=== PATIENT | female | born 1995 | race Caucasian/White ===

== ENCOUNTER 2024-07-30 13:47 | Outpatient (CLI) | payer BC, SELFPAY | END 2024-07-30 13:48 | disposition home or self-care (01) | LOC: NFLDREF 13:49 | PROVIDERS: Visit Provider Advanced Practice Midwife | DX: Z34.92 Encounter for supervision of normal pregnancy, unspecified, second trimester (principal); Z3A.22 22 weeks gestation of pregnancy | CPT/HCPCS: 86787 ==

== ENCOUNTER 2024-09-13 15:01 | Outpatient (CLI) | payer BC, SELFPAY | END 2024-09-13 15:02 | disposition home or self-care (01) | LOC: NFLDREF 09-18 02:05 | PROVIDERS: Visit Provider Advanced Practice Midwife | DX: Z34.93 Encounter for supervision of normal pregnancy, unspecified, third trimester (principal); Z3A.28 28 weeks gestation of pregnancy | CPT/HCPCS: 86592 ==

== ENCOUNTER 2024-09-19 07:51 | Outpatient (CLI) | payer BC, SELFPAY | END 2024-09-19 07:52 | disposition home or self-care (01) | LOC: NFLDREF 09-23 00:06 | PROVIDERS: Visit Provider Advanced Practice Midwife | DX: O99.810 Abnormal glucose complicating pregnancy (principal); Z3A.29 29 weeks gestation of pregnancy | CPT/HCPCS: 82951; 82952 ==

== ENCOUNTER 2024-11-04 07:30 | Outpatient (RCR) | payer BC, SELFPAY | END 2025-03-04 23:59 | disposition home or self-care (01) | PROVIDERS: Visit Provider Advanced Practice Midwife | DX: N81.89 Other female genital prolapse (principal); Z3A.28 28 weeks gestation of pregnancy; Z51.89 Encounter for other specified aftercare | CPT/HCPCS: 86592; 97110; 97140; 97161; 97535 ==

== ENCOUNTER 2024-11-05 10:33 | Outpatient (CLI) | payer BC, SELFPAY | END 2024-11-05 10:34 | disposition home or self-care (01) | LOC: NFLDREF 11-07 19:00 | PROVIDERS: Visit Provider Advanced Practice Midwife | DX: Z34.83 Encounter for supervision of other normal pregnancy, third trimester (principal) | CPT/HCPCS: 87081; 87653 ==

== ENCOUNTER 2024-11-14 09:20 | Outpatient (CLI) | payer BC, SELFPAY | END 2024-11-14 09:21 | disposition home or self-care (01) | LOC: NFLDREF 09:32 | PROVIDERS: Visit Provider Midwife | DX: Z39.1 Encounter for care and examination of lactating mother (principal); R42 Dizziness and giddiness | CPT/HCPCS: 84443 ==

== ENCOUNTER 2024-11-19 15:38 | Outpatient (CLI) | payer BC, SELFPAY ==
--- OUTSIDE RECORDS SUMMARY | 2023-10-31 05:00 | XMS_ITS ---
Author Organization [facility] Address [address] [place] [address] Care Team Providers Care Headstart Teacher Name Role Phone Cecilia Aguilera Primary Care Provider ALLERGIES No Known Allergies RESULTS Component Value Reference Range Notes Comp. Metabolic Panel (14) ( CMP)([id number]) Reviewed date:11/20/2023 11:37:32 AM Interpretation: Performing Lab:[facility], [employer] [place], [place] [id number], Phone - [phone], Director - [facility] Notes/Report: Glucose 80 70-99 mg/dL BUN 12 6-20 mg/dL Creatinine 0.86 0.57-1.00 mg/dL eGFR 95 >59 mL/min/1.73 BUN/Creatinine Ratio 14 9-23 Sodium 136 134-144 mmol/L Potassium 4.3 3.5-5.2 mmol/L Chloride 103 96-106 mmol/L Carbon Dioxide, Total 18 20-29 mmol/L Calcium 9.7 8.7-10.2 mg/dL Protein, Total 7.2 6.0-8.5 g/dL Albumin 4.5 4.0-5.0 g/dL Globulin, Total 2.7 1.5-4.5 g/dL Bilirubin, Total 0.6 0.0-1.2 mg/dL Alkaline Phosphatase 61 44-121 IU/L AST (SGOT) 16 0-40 IU/L ALT (SGPT) 10 0-32 IU/L Hemoglobin A1c (S/O) ([id number] ) Reviewed date:11/17/2023 12:07:28 PM Interpretation: Performing Lab:[facility], [address] [place] [id number], Phone - [phone], Director - [facility] Notes/Report: Hemoglobin A1c 5.1 4.8-5.6 % . Prediabetes: 5.7 - 6.4 Diabetes: >6.4 Glycemic control for adults with diabetes: <7.0 TSH ([id number]) Reviewed date:11/17/2023 12:08:36 PM Interpretation: Performing Lab:[facility], [address] [place] [id number], Phone - [phone], Director - [facility] Notes/Report: TSH 2.990 0.450-4.500 uIU/mL Vitamin D, 25-Hydroxy (Vit D ) (797676) Reviewed date:11/17/2023 12:08:29 PM Interpretation: Performing Lab:[facility], [address] [place] [id number], Phone - [phone], Director - [facility] Notes/Report: Vitamin D, 25-Hydroxy 40.0 30.0-100.0 ng/mL Vitamin D deficiency has been defined by the [place] [employer] and an Endocrine Society practice guideline as a level of serum 25-OH vitamin D less than 20 ng/mL (1,2). The Endocrine Society went on to further define vitamin D insufficiency as a level between 21 and 29 ng/mL (2). 1. IOM ([place] of [employer]). 2010. Dietary reference intakes for calcium and D. [place]: The National Academies Press. 2. Bolivar MF, Jessi [place], Micheal RENEE, et al. Evaluation, treatment, and prevention of vitamin D deficiency: an Endocrine Society clinical practice guideline. JCEM. 2010; 96(7):1911-30. Lipid Panel [facility] (409397) Reviewed date:11/17/2023 12:08:21 PM Interpretation: Performing Lab:[facility], [address] [place] [id number], Phone - [phone], Director - [facility] Notes/Report: Cholesterol, Total 140 100-199 mg/dL Triglycerides 69 0-149 mg/dL HDL Cholesterol 60 >39 mg/dL VLDL Cholesterol López 14 5-40 mg/dL LDL Chol Calc ([facility]) 66 0-99 mg/dL LDL Calc Comment: CBC With Differential/Platel et ([id number]) Reviewed date:11/17/2023 12:08:06 PM Interpretation: Performing Lab:[facility], [address], [place] [id number], Phone - [phone], Director - [facility] Notes/Report: WBC 5.5 3.4-10.8 x10E3/uL RBC 4.65 3.77-5.28 x10E6/uL Hemoglobin 14.0 11.1-15.9 g/dL Hematocrit 42.5 34.0-46.6 % MCV 91 79-97 fL MCH 30.1 26.6-33.0 pg MCHC 32.9 31.5-35.7 g/dL RDW 12.4 11.7-15.4 % Platelets 244 150-450 x10E3/uL Neutrophils 56 Not Estab. % Lymphs 37 Not Estab. % Monocytes 5 Not Estab. % Eos 1 Not Estab. % Basos 1 Not Estab. % Immature Cells Neutrophils (Absolute) 3.1 1.4-7.0 x10E3/uL Lymphs (Absolute) 2.0 0.7-3.1 x10E3/uL Monocytes(Absolute) 0.3 0.1-0.9 x10E3/uL Eos (Absolute) 0.1 0.0-0.4 x10E3/uL Baso (Absolute) 0.0 0.0-0.2 x10E3/uL Immature Granulocytes 0 Not Estab. % Immature Grans (Abs) 0.0 0.0-0.1 x10E3/uL NRBC Hematology Comments: [facility] ([id number]) Reviewed date:11/17/2023 12:07:52 PM Interpretation: Performing Lab:[facility], [address], [place] [id number], Phone - [phone], Director - [facility] Notes/Report: Patient Height (In) 63.0 Patient Weight (lbs) 140.0 Body Mass Index 24.8 Waist Circumference (In) 26.0 Systolic Blood Pressure 116 Diastolic Blood Pressure 78 Pulse 78 REASON FOR VISIT Annual Wellness Review MEDICATIONS Medication SIG (Take, Route, Fr equency, Duration) Notes Start Date End Date Status Vienva 0.1-20 MG-MCG 1 TABLET BY MOUTH O NCE DAILY Oral for 84 Days Active SOCIAL HISTORY Tobacco Use: Social History Observation Description Date Details (start date - stop date) Never Smoker NA - NA Sex Assigned At : Social History Observation Description Sex Assigned At Unknown Tobacco Use/Smoking Question Answer Notes Are you a nonuser Alcohol Questionnaire Question Answer Notes Did you have a drink contain ing alcohol in the past year? Yes How often did you have a dri nk containing alcohol in the past year? Monthly or less (1 point) How many drinks did you have on a typical day when you were drinking in the past year? 1 or 2 drinks (0 point) How often did you have 6 or more drinks on one occasion in the past year? Never (0 point) Points 1 Interpretation Negative VITAL SIGNS Weight 145 lbs 10/31/2023 Height 62 in 10/31/2023 BMI 26.52 10/31/2023 Weight-kg 65.77 kg 10/31/2023 Encounters Encounter Location Date Provider Diagnosis [address] [id number] [facility] [place] [address] 10/31/2023 Ceciila Aguilera Encounter to establish care Z76.89 and Routine lab draw Z01.89 ASSESSMENTS Encounter Date Diagnosis Assessment Notes Treatment Notes Treatment Clinical Notes Section Notes 10/31/2023 Encounter to establish care (ICD-10 - Z76.89) Advised patient to obtain yearly flu vaccine if not allergic, yearly eye exam, dental cleaning q 6 months, perform SBE and skin checks monthly, exercise 150minutes weekly, eat a variety of colorful fruits and vegetables. Avoid sugary beverages, processed red meats and trans fats (processed and fast food) as these promote disease. CPE yearly and follow up prn. 10/31/2023 Routine lab draw (ICD-10 - Z01.89) PLAN OF TREATMENT Treatment Notes Assessment Notes Encounter to establish care Advised sher ent to obtain yearly flu vaccine if not allergic, yearly eye exam, dental cleaning q 6 months, perform SBE and skin checks monthly, exercise 150minutes weekly, eat a variety of colorful fruits and vegetables. Avoid sugary beverages, processed red meats and trans fats (processed and fast food) as these promote disease. CPE yearly and follow up prn. Next Appt Details Follow Up: 1 Week, Reason: f /u labs Progress Notes * Juan Carlos RAMIREZ: [birth year] (28 yo F)Acc No.[id number]:10/31/2023 Patient: Jer RAMIREZ Provider: Cecilia Aguilera NP :1995 Age:28 Y Sex:Female Date:10/31/2023 Address:[address] [place] [address], [facility] Subjective: * Chief Complaints: * 1. Annual Wellness Review. * HPI: Depression/Anxiety Screening: PHQ-2 (2015 Edition)* Little interest or pleasure in doing things? Not at all Feeling down, depressed or hopeless? Not at all Total score: 0 This encounter was undertaken via video. I introduced myself as Cecilia Aguilera NP and greeted Jer Ramirez by name, then verified her date of , and verified her location in [place]. We reviewed the appropriateness of virtual care for this visit and the limitations of telemedicine. We discussed that virtual provider does not take the place of your PCP and you should continue to maintain a relationship with a local PCP. If it was felt the patient should be evaluated [id number], they were directed to the clinic for care either now or at a subsequent visit as indicated below. I obtained verbal consent for this telemedicine visit from the patient. The patient is having an annual wellness performed today. Her only concern is wanting to lose about 15-20 pounds before her wedding. She was interested in GLP-1's, but I did notify that we do not do weightloss medications, but there are some other online programs that do. We will also get annual labs today. Depression Screening: SANJEEV-7 (2018 Edition) Feeling nervous, anxious, or on edge Several days Not being able to stop or control worrying Several days Worrying too much about different things Several days Trouble relaxing Not at all Being so restless that it is hard to sit still Several days Becoming easily annoyed or irritable Several days Feeling afraid as if something awful might happen Several days Total SANJEEV-7 Score 6 Interpretation of Total (5 to 9) Mild * ROS: Patient denies fever, chills, headache, sore throat, dizziness, weakness, nausea, vomiting, diarrhea, congestion, cough, wheezing, SOB, HIDALGO, chest pain, itching, rash, changes to bowel / bladder patterns, abdominal discomforts, changes in sleep habits, vision changes, musculoskeletal trauma, anxiety, depression or any other complaints. * Medical History: Medical History Verified. 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 Date of Last Period 10/15/23 NORMAL. control YES. * Surgical History: BENIGN TUMOR R BREAST REMOVED 2014. * Hospitalization/Major Diagno stic Procedure: SEE ABOVE . * Family History: Father: alive 62 yrs, diagnosed with Hypertension, Hyperlipidemia. Mother: alive 63 yrs, kidney transplant, diagnosed with Hypertension, Hyperlipidemia. Family history of renal failure. * Social History: Tobacco Use: Tobacco Use/Smoking Are you a nonuser Habits (drugs/alcohol/caffeine): Alcohol Questionnaire Did you have a drink containing alcohol in the past year? Yes How often did you have a drink containing alcohol in the past year? Monthly or less (1 point) How many drinks did you have on a typical day when you were drinking in the past year? 1 or 2 drinks (0 point) How often did you have 6 or more drinks on one occasion in the past year? Never (0 point) Points 1 Interpretation Negative * Medications: Taking Vienva 0.1-20 MG-MCG Tablet 1 TABLET BY MOUTH ONCE DAILY Oral , Medication List reviewed and reconciled with the patient * Allergies: N.K.A. Objective: * Vitals: Wt:145lbs, Ht:62in, BMI:26.52, Wt-k.77 kg. * Examination: General Examination *: General: well-appearing, well-groomed, alert, in no acute distress Skin: no visible rashes, bruising, lesions, or lacerations Head: normocephalic, facial movements symmetrical Eyes: clear conjunctiva, anicteric sclera Ears: hearing grossly intact Throat: speaks in clear, unmuffled voice without stridor, dysphonia, congestion, or hoarseness Neck: no visible thyromegaly or other masses, able to move neck in all directions without signs of pain Chest/lungs: normal respiratory effort, no tachypnea apparent, speaking in full sentences, no audible wheezing, symmetrical chest expansion Neuro: no visible tremor or involuntary movements, normal concentration and attention, A&O x3 with memory grossly intact, coordination appears normal within limited video view Psych: calm, cooperative, answers questions appropriately, pleasant, not anxious during visit. Assessment: * Assessment: 1. Encounter to establish care - (Primary) 2. Routine lab draw - Plan: * Treatment: Value Reference Range Glucose, Serum 80 70-99 - mg/dL * BUN 12 6-20 - mg/dL * Creatinine, Serum 0.86 0.57-1.00 - mg/dL * BUN/Creatinine Ratio 14 9-23 - * Sodium, Serum 136 134-144 - mmol/L * Potassium, Serum 4.3 3.5-5.2 - mmol/L * Chloride, Serum 103 96-106 - mmol/L * Carbon Dioxide, Total 18 L 20-29 - mmol/L * Calcium, Serum 9.7 8.7-10.2 - mg/dL * Protein, Total, Serum 7.2 6.0-8.5 - g/dL * Albumin, Serum 4.5 4.0-5.0 - g/dL * Globulin, Total 2.7 1.5-4.5 - g/dL * Bilirubin, Total 0.6 0.0-1.2 - mg/dL * Alkaline Phosphatase, S 61 44-121 - IU/L * AST (SGOT) 16 0-40 - IU/L * ALT (SGPT) 10 0-32 - IU/L * eGFR 95 >59 - mL/min/1.73 * This lab was reviewed by Luiza Aguilera on 11/20/2023 at 11:37 AM MDT ?LAB: Hemoglobin A1c (S/O) ([id number])* Value Reference Range Hemoglobin A1c 5.1 4.8-5.6 - % * This lab was reviewed by Luiza Aguilera on 11/17/2023 at 12:07 PM MDT ?LAB: TSH ([id number])* Value Reference Range TSH 2.990 0.450-4.500 - uIU/mL * This lab was reviewed by Luiza Aguilera on 11/17/2023 at 12:08 PM MDT ?LAB: Vitamin D, 25-Hydroxy (Vit D) ([id number])* Value Reference Range Vitamin D, 25-Hydroxy 40.0 30.0-100.0 - ng/mL * This lab was reviewed by Luiza Aguilera on 11/17/2023 at 12:08 PM MDT ?LAB: CBC With Differential/Platelet ([id number])* Value Reference Range WBC 5.5 3.4-10.8 - x10E3/uL * RBC 4.65 3.77-5.28 - x10E6/uL * Hemoglobin 14.0 11.1-15.9 - g/dL * Hematocrit 42.5 34.0-46.6 - % * MCV 91 79-97 - fL * MCH 30.1 26.6-33.0 - pg * MCHC 32.9 31.5-35.7 - g/dL * RDW 12.4 11.7-15.4 - % * Platelets 244 150-450 - x10E3/uL * Neutrophils 56 Not Estab. - % * Lymphs 37 Not Estab. - % * Monocytes 5 Not Estab. - % * Eos 1 Not Estab. - % * Basos 1 Not Estab. - % * Neutrophils (Absolute) 3.1 1.4-7.0 - x10E3/u L * Lymphs (Absolute) 2.0 0.7-3.1 - x10E3/uL * Monocytes(Absolute) 0.3 0.1-0.9 - x10E3/uL * Eos (Absolute) 0.1 0.0-0.4 - x10E3/uL * Baso (Absolute) 0.0 0.0-0.2 - x10E3/uL * Immature Granulocytes 0 Not Estab. - % * Immature Grans (Abs) 0.0 0.0-0.1 - x10E3/uL * This lab was reviewed by Luiza Aguilera on 11/17/2023 at 12:08 PM MDT ?LAB: Lipid Panel [facility] ([id number])* Value Reference Range Cholesterol, Total 140 100-199 - mg/dL * HDL Cholesterol 60 >39 - mg/dL * Triglycerides 69 0-149 - mg/dL * Cholesterol, Total 140 100-199 - mg/dL * Triglycerides 69 0-149 - mg/dL * HDL Cholesterol 60 >39 - mg/dL * VLDL Cholesterol López 14 5-40 - mg/dL * LDL Chol Calc ([facility]) 66 0-99 - mg/dL * This lab was reviewed by Luiza Aguilera on 11/17/2023 at 12:08 PM MDT ?LAB: BIOMETRICS ([id number])* Value Reference Range Patient Height (In) 63.0 - in * Patient Weight (lbs) 140.0 - lbs * Body Mass Index 24.8 - * Waist Circumference (In) 26.0 - in * Systolic Blood Pressure 116 - mmHg * Diastolic Blood Pressure 78 - mmHg * Pulse 78 - BPM * This lab was reviewed by Luiza Aguilera on 11/17/2023 at 12:07 PM MDT Notes: Advised patient to obtain yearly flu vaccine if not allergic, yearly eye exam, dental cleaning q 6 months, perform SBE and skin checks monthly, exercise 150minutes weekly, eat a variety of colorful fruits and vegetables. Avoid sugary beverages, processed red meats and trans fats (processed and fast food) as these promote disease. CPE yearly and follow up prn. ? * Procedure Codes: 1036F Nicotine Screening, 3008F BMI Screening, 3351F Depression Screening, 35641 Anxiety Screening, [employer] WELLNESS * Preventive Medicine: Recommend in person physical exam yearly, recommend dental exam every 6 months, recommend Annual labs, recommend colonoscopy after age 45. Recommend yearly mammogram after age 40, recommend pap smear q1-3 years. * Follow Up: 1 Week (Reason: f/u labs) * Billing Information: * Visit Code: 59556 Televisit Lvl 3. Modifiers: 93 * Procedure Codes: 1036F Nicotine Screening - Non-user (Current). 3008F BMI Screening. 3351F Depression Screening - NEGATIVE Screening (PHQ9 <10). 83848 Anxiety Screening. [employer] WELLNESS. * Sign off status: Completed true * Provider: Cecilia Aguilera NP Date: 10/31/2023 History and Physical Notes * HPI (History of Present Illness) Category Sub-Category Detail Notes Category Not es Depression/Anxiety Screening PHQ-2 (2015 Edition)* Little interest or pleasure in doing things?: Not at all This encounter was undertaken via video. I introduced myself as Cecilia Aguilera NP and greeted Jer Ramirez by name, then verified her date of , and verified her location in [place]. We reviewed the appropriateness of virtual care for this visit and the limitations of telemedicine. We discussed that virtual provider does not take the place of your PCP and you should continue to maintain a relationship with a local PCP. If it was felt the patient should be evaluated [id number], they were directed to the clinic for care either now or at a subsequent visit as indicated below. I obtained verbal consent for this telemedicine visit from the patient. The patient is having an annual wellness performed today. Her only concern is wanting to lose about 15-20 pounds before her wedding. She was interested in GLP-1's, but I did notify that we do not do weightloss medications, but there are some other online programs that do. We will also get annual labs today. Feeling down, depressed or hopeless?: No t at all Total score:: 0 Depression Screening SANJEEV-7 (2018 Edition) Feelin g nervous, anxious, or on edge: Several days Not being able to stop or control worryi ng: Several days Worrying too much about different things : Several days Trouble relaxing: Not at all Being so restless that it is hard to sit still: Several days Becoming easily annoyed or irritable: Se veral days Feeling afraid as if something awful luis armando ht happen: Several days Total SANJEEV-7 Score: 6 Interpretation of Total: (5 to 9) Mild Examination Category Sub-Category Detail Notes Category Not es General Examination * General: well-appearing, well-groomed, alert, in no acute distress Skin: no visible rashes, bruising, lesions, or lacerations Head: normocephalic, facial movements symmetrical Eyes: clear conjunctiva, anicteric sclera Ears: hearing grossly intact Throat: speaks in clear, unmuffled voice without stridor, dysphonia, congestion, or hoarseness Neck: no visible thyromegaly or other masses, able to move neck in all directions without signs of pain Chest/lungs: normal respiratory effort, no tachypnea apparent, speaking in full sentences, no audible wheezing, symmetrical chest expansion Neuro: no visible tremor or involuntary movements, normal concentration and attention, A&O x3 with memory grossly intact, coordination appears normal within limited video view Psych: calm, cooperative, answers questions appropriately, pleasant, not anxious during visit.
--- OUTSIDE RECORDS SUMMARY | 2023-11-01 06:41 | XMS_ITS ---
Author Organization [facility] Address [address] [place] [address] Care Team Providers Care Concession Attendant Name Role Phone Cecilia Aguilera Primary Care Provider REASON FOR VISIT PRTL: lab req, recommendations for weight loss Encounters Encounter Location Date Provider Diagnosis [address] [place] [address] 11/01/2023 Cecilia Aguilera PLAN OF TREATMENT No Information Progress Notes * Jer REYNOLDSDOB: [birth year] (28 yo F)Acc No.[id number]:11/01/2023 Patient: Jer REYNOLDS :1995 Age:28 Y Sex:Female Address:[address] [place] [id number] Subjective: * Chief Complaints: * PRTL: lab req, recommendations for weight loss * Medical History: * Surgical History: * Hospitalization/Major Diagno stic Procedure: * Medications: Objective: Assessment: Plan: * Treatment: * Procedure Codes: * true * Date:
--- OUTSIDE RECORDS SUMMARY | 2023-11-21 04:10 | XMS_ITS ---
Author Organization [facility] Address [address] [place] [address] Care Team Providers Care Development Editor Name Role Phone Cecilia Aguilera Primary Care Provider REASON FOR VISIT PRTL: labs Encounters Encounter Location Date Provider Diagnosis [address] [place] [address] 11/21/2023 Cecilia Aguilera PLAN OF TREATMENT No Information Progress Notes * Kiersten REYNOLDSkandisDOB: [birth year] (28 yo F)Acc No.[id number]:11/21/2023 Patient: Jer REYNOLDS :1995 Age:28 Y Sex:Female Address:[address] [place] [id number] Subjective: * Chief Complaints: * PRTL: labs * Medical History: * Surgical History: * Hospitalization/Major Diagno stic Procedure: * Medications: Objective: Assessment: Plan: * Treatment: * Procedure Codes: * true * Date:
--- NOTE | 2024-11-19 16:26 | W.PM.LAC.MC ---
Consult Note - Mom Date of Visit Date of visit: 11/19/24 Reason for consultation: Assistance Needed (latching issue) Visit Code: Visit Patient's Information Phone number: [phone] : 2 Para: 1 Allergies No Known Drug Allergies Allergy (Verified 11/19/24 12:46) Mother's Medical History: Medical History (Updated 11/19/24 @ 13:14 by Tracy Marin CNM) Induced ?Z33.2 - Encounter for elective termination of (ICD-10) Genital herpes ?A60.00 - Herpesviral infection of urogenital system, unspecified (ICD-10) Work Plans: return to work at 12 weeks Delivery Information Delivery type: Vaginal Gestational Age: 37 Gestational Weight For Age: AGA Weight: 3.061 kg Baby's Information Baby's Age at Visit: 10 days Baby's Provider or Clinic: [facility] Jaundice: No Past Experience Past Experience: No Current Frequency of Day Feedings: every 2-3 hrs, needs waking for feedings Frequency of Night Feedings: same Both Breasts: Yes Suck: gets tired, occas strong Latch: needs a sheild Length of Time: 15 min ea side Goals: 6 months to 1 year Pumping Pumping: Yes Quantity Pumped: 2-4 oz/breast ea feeding every 3 hours (4-8 oz total) Supplementing EBM Supplement: Yes (taking 1-3 oz/feeding) Formula Supplement: No Baby Elimination Number of Wet Diapers a Day: ea feeding Number of BM a Day: 5-6 or more/day Breast/Nipple Condition Breast Information: Breasts are symmetrical with rounded lower quadrants, intramammary distance is less than 1.5 inches. No erythema. Nipples are supple, everted prior to feeding. Breast Shape: Round and Firm Engorgement: No Maternal Nipple Condition - Left: Common Nipple Maternal Nipple Condition - Right: Common Nipple Sore Nipples: Yes (slight) Interventions for Sore Nipples: Other (silverettes) Baby Assessment Skin: Normal Tongue/frenulum: Restricted mid-range Palate: Average Lips: Relaxed and Symmetrical Jaw Alignment: Symmetrical Mucosa: [place], moist Onsite Observation Pre-Feed weight: 2.932 kg (up 112 gm in 7 days) Post-Feed weight: 2.946 kg Milk Transferred (mL): 14 (10 min on L side, 10 min on R; 14 ml was all from the LEFT (1st) side) Position: Cross cradle Attachment/latch-on achieved: With difficulty and With nipple shield Swallow: Occasionally Behavior following feed: Relaxed, sleepy Pre-Nursing Left Nipple: Within Normal Limits Pre-Nursing Right Nipple: Within Normal Limits Post-Nursing Left Nipple: Within Normal Limits Post-Nursing Right Nipple: Within Normal Limits Assessments/Interventions Assessments/Interventions: Mom attempted to latch baby to the breast without a nipple shield; babe will open mouth wide, latch on, suck a few times but cannot general passenger agent the breast and resume nursing to transfer ramya. With a nipple shield, he can sustain nursing longer, but not transferring sufficient milk for growth and tires self out on first breast. Education provided: Early feeding cues to maximize timing of latching, Asymmetric latch technique for wide/deep latch to increase milk, Transfer for baby and increase comfort for mom, Supply/demand nature of milk supply, Alternative feeding methods (SNS, cup, finger feeding, bottling) (paced bottle feeding), Use of nipple shield, Pumping for milk management and Milk collection, storage Handouts Provided: Tongue tie resources Feeding Plan: Every other feeding; breastfeed for 10 on each breast, listening for active swallowing. Try to latch without shield but use shield if needed Then supplement with EBM, up to 3 oz after Every other feeding, pump and bottle EBM to conserve energy for baby and time for mom. Discussed importance of rest for mom Pump both breasts for: 15-20 minutes after each feeding; a full 20 minutes if pumping instead of Use Paced bottle for feeding; demonstrated in office today Rest, and repeat every 2-3 hours, watch for early feeding cues Try skin to skin to increase milk production Discussed being careful not to over pump and create an oversupply; mom will watch this carefully She is also eager to create a milk stash to have enough milk if her supply drops later on. Discussed he pros/cons of an oversupply. Follow-Up Suggested follow up: Appointment in 1 week Time Spent Time spent with patient (min): 90 Meds Home Medications and Allergies Home Medications ?Medication ?Instructions ?Recorded ?Confirmed ?Type vits 75-iron 28 mg-folic pkg PO 07/30/24 11/19/24 History acid 800 mcg-omega-3 oral combo pack (One A Day Women's DHA) calcium carbonate 500 mg PO QDAY 09/13/24 11/19/24 History valacyclovir 500 mg tablet 500 mg PO BID 11/05/24 11/19/24 History (Valtrex) Allergies Allergy/AdvReac Type Severity Reaction Status Date / Time No Known Drug Allergies Allergy Verified 11/19/24 12:46
--- OUTSIDE RECORDS SUMMARY | 2024-11-20 00:56 | XMS_ITS | Patient Health Record ---
Author Organization [facility] Address [address] [place] [address] Care Team Providers Care Furnace Repairer Helper Name Role Phone Cecilia Aguilera Primary Care Provider ALLERGIES No Known Allergies REASON FOR REFERRAL No Information MEDICATIONS Medication SIG (Take, Route, Fr equency, [...] Never (0 point) Points 1 Interpretation Negative Encounters Encounter Location Date Provider Diagnosis [facility] [address] [id number] 11/21/2023 Cecilia Aguilera PLAN OF TREATMENT No Information Insurance Providers Payer Name Payer Address Payer Phone Subscriber Number Group Number Insured Name Patient Relationship to Insured Coverage Start Date Coverage End Date RICKEY LEIVA [address] [address] [place] [address] [id number] Jer Reynolds Self - patient is the insured MEDICAL (GENERAL) HISTORY Surgical History Surgery Date(Month/Year) BENIGN TUMOR R BREAST REMOVED 2015 Hospitalization History Reason Date(Month/Year) SEE ABOVE
--- OUTSIDE RECORDS SUMMARY | 2024-11-20 00:56 | XMS_ITS | Clinical Summary ---
Author Organization [facility] Address [address] [place] [id number] Care Team Providers Care Medical Screener Name Role Phone Ruby Villalta MD Primary Care Provi fidencio Allergies No known active allergies Medications clobetasol 0.05% (TEMOVATE 0.05% OINTMENT) 0.05 % ointmentIndications :Lichen of skin,Vulvar irritation Apply small amount to affected nightly before bed for 2 weeks or until symptoms resolved. 1 Tube 7 Active levonorgestrel-ethi nyl estrad, 0.1mg-20mcg, (FALMINA, 28,) 0.1-20 mg-mcg tabletIndications:E ncounter for surveillance of contraceptives Take 1 tablet by mouth once daily. 1 Package 12 7 Active fluconazole (DIFLUCAN) 150 mg tabletIndications:V aginal discharge Take one tablet by mouth. Repeat in 24 hours as needed. 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 Gender Identity Not on file Sexual Orientation Not on file 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 Not on file Not on file Not on mitzi e Obstetrics History Para Term AB IAB SAB Ectopic Multiple Livin g Live Births 0 0 0 0 0 0 0 0 0 0 Last Filed Vital Signs Vital Sign Reading Time Taken Comments Blood Pressure 112/72 11/21/2016 11:40 AM CDT Pulse 66 11/21/2016 11:40 AM CDT Temperature - - Respiratory Rate - - Oxygen Saturation - - Inhaled Oxygen Concentration - - Weight 53 kg (116 lb 12.8 oz) 11/21/2016 11:40 A M CDT Height 157.5 cm (5' 2) 08/11/2016 9:43 AM CDT Body Mass Index - - Plan of Treatment Health Maintenance Due Date Last Done Comments HIV for age 15-65 2012 Hepatitis C screening for ag e 18-79 2015 Hepatitis B series for 19+ ( 1 of 3 - 19+ 3-dose series) 2016 BMI (ht and wt on same day) for age 18+ 08/11/2017 08/11/2016 Depression screening for age 12+ 08/29/2017 08/30/19 17 Pap test for age 21-65 2018 Tetanus booster 01/20/2020 01/19/2010 COVID-19 vaccine series (2023- season) 2024 Influenza Vaccine (Season Ended) 2025 Tdap Completed 01/19/2010 Pneumococcal series for age 6-49 Aged Out No longer eligible based on patient's age to complete this topic Insurance BLUE CROSS OF [place] Care Teams Medical Screener Relationship Specialty Start Date End Date Ruby Villalta MD [address] [place] [address] PCP - General Family Practice 08/11/16
--- OUTSIDE RECORDS SUMMARY | 2024-11-20 00:56 | XMS_ITS | Clinical Summary ---
Author Organization [facility] Address [address] [place] [address] Care Team Providers Care Glass Products Inspector Name Role Phone Elsewhere, Pcp Primary Care Provider Unavailabl e Source Comments Patient records contain information from all sites at [facility]. For routine questions regarding patient records, call [phone] during business hours, M-F 8:00 AM - 5:00 PM Central Time. Record requests for emergency care only can be directed to [phone] at any time.[facility] Allergies No known active allergies Medications cjozfqg-Gk-ogzp-FA 27 mg iron- 1 mg tablet Take 1 tablet by mouth daily. Active cholecalciferol (Vitamin D3) 125 mcg (5,000 Unit) capsule Take 125 mcg by mouth daily. Active ondansetron ODT (Zofran-ODT) 4 mg disintegrating tablet Dissolve 1 tablet (4 mg total) in the mouth every 8 (eight) hours as needed for nausea or vomiting. Active Active Problems Estimated Date of Delivery Comme nts Yes 11/26/2024 No known active problems Social History Tobacco Use Types Packs/Day Years Used Date Smoking Tobacco: Never Smokeless Tobacco: Never Tobacco Cessation:Counseling Given: Not Answered Estimated Date of Delivery Comme nts Yes 11/26/2024 Sex and Gender Information Value Date Recorded Sex Assigned at Not on file Legal Sex Female 4:49 PM DIRECT MAIL CLERK Gender Identity Not on file Sexual Orientation Not on file Last Filed Vital Signs Vital Sign Reading Time Taken Comments Blood Pressure 99/68 05/29/2024 1:30 PM DIRECT MAIL CLERK Pulse 90 05/29/2024 1:50 PM DIRECT MAIL CLERK Temperature 36.8 C (98.2 F) 05/29/2024 10:41 AM DIRECT MAIL CLERK Respiratory Rate 16 05/29/2024 1:50 PM DIRECT MAIL CLERK Oxygen Saturation 98% 05/29/2024 1:50 PM DIRECT MAIL CLERK Inhaled Oxygen Concentration - - Weight 60.1 kg (132 lb 9.6 oz) 05/29/2024 10:39 AM DIRECT MAIL CLERK Height 157.5 cm (5' 2) 05/26/2024 8:07 AM DIRECT MAIL CLERK Body Mass Index 24.25 05/26/2024 8:07 AM DIRECT MAIL CLERK Plan of Treatment Health Maintenance Due Date Last Done Comments Cervical/Vaginal Cancer Screening 1997 HIV Screening 1997 Hepatitis C Screening 1997 IPV Vaccines (2 of 3 - 4-dose series) 02/03/2003 01/06/2003 Hepatitis B Vaccines (1 of 3 - 19+ 3-dose series) 2016 COVID-19 Vaccine (4 - season) 2024 06/21/2021, 10/06/2020, 09/08/2020 Influenza Vaccine (#1) 2024 , 03/06/2019, 03/08/2018, Additional history exists Depression Screening (Annual PHQ-2) 05/29/2024 Tdap vaccine - (27-36 weeks) (1 - Tdap) 08/27/2024 12/01/2020, 01/19/2010, 01/06/2003 DTaP,Tdap,and Td Vaccines (4 - Td or Tdap) 12/01/2030 12/01/2020, 01/19/2010, 01/06/2003 HPV Vaccines Completed 11/07/2014, 11/28, 11/21/2013 Pneumococcal vaccine (0-49 years) Aged Out No longer eligible based on patient's age to complete this topic RSV vaccine - (32-36 weeks) or 60+ years (No Doses Required) Completed Insurance [facility] Care Teams Glass Products Inspector Relationship Specialty Start Date End Date Elsewhere, Pcp PCP - General Machinist Job Setter 06/14/19
== END 2024-11-19 15:39 | disposition home or self-care (01) ==
LOC: OB LAC 15:39
PROVIDERS: Visit Provider Advanced Practice Midwife
DX: Z39.1 Encounter for care and examination of lactating mother (principal)
CPT/HCPCS: G0463

== ENCOUNTER 2024-12-20 11:35 | Outpatient (CLI) | payer BC, SELFPAY ==
[2024-12-21 22:00] LABS: HPV Source Cervical
[2024-12-25 13:39] LABS: Pap Test Digital Imaging Done
== END 2024-12-20 11:36 | disposition home or self-care (01) ==
PROVIDERS: Visit Provider Midwife
DX: Z12.4 Encounter for screening for malignant neoplasm of cervix (principal); Z11.51 Encounter for screening for human papillomavirus (HPV)
CPT/HCPCS: 87624; 87625; 88141; 88142; 88175

== ENCOUNTER 2024-12-30 09:30 | Outpatient (CLI) | payer BC, SELFPAY ==
--- NOTE | 2024-12-30 14:50 | W.PM.LAC.MF ---
Follow-Up Note: Mom Date of visit Date of visit: 12/30/24 Reason for consultation: Assistance Needed and Other (milk transfer, pumping questions) Visit Code: Visit Patient's Information Allergies No Known Drug Allergies Allergy (Verified 12/20/24 10:36) Delivery Information Weight: 3.061 kg Last Weight: 3.31 kg (11/26/24) Baby's Information Baby's name: Kj Sarmiento Baby's Age at Visit: 1m 21d Baby's Provider or Clinic: [facility] Current Frequency of Day Feedings: every 3 hours Frequency of Night Feedings: 4-6 hr stretches Both Breasts: Yes Suck: strong Latch: on and off Length of Time: 15 min ea side; nursing 1x/day (9pm) Pumping Pumping: Yes Quantity Pumped: 5-6oz ea pump Supplementing EBM Supplement: Yes (taking 3.5-4 oz/feeding) Formula Supplement: No Baby Elimination Number of Wet Diapers a Day: ea feeding Number of BM a Day: 6+/day; yellow, seedy in color Breast/Nipple Assessment Breast/Nipple Assessment: Breasts are symmetrical with rounded lower quadrants, intramammary distance is less than 1.5 inches. No erythema. Nipples are supple, everted prior to feeding. Breast Shape: Round Engorgement: No Maternal Nipple Condition - Left: Common Nipple Maternal Nipple Condition - Right: Common Nipple Sore Nipples: No Onsite Observation Pre-feed weight: 4.514 kg (gain average 35gm/day) Post-Feed weight: 4.584 kg Milk Transferred (mL): 70 Pre-Nursing Left Nipple: Within Normal Limits Pre-Nursing Right Nipple: Within Normal Limits Post-Nursing Left Nipple: Within Normal Limits Post-Nursing Right Nipple: Within Normal Limits Assessments/Interventions Assessments/Interventions: Babe latched to mom's LEFT breast, latched well but shallow despite attempts to relatch with deeper latch and stayed nursing for 12 minutes. Transferred 44 ml of milk Babe then latched to mom's RIGHT breast, latched a bit more deeply, but still struggles to stay latched deeply and nursed for another 15 minutes. Transferred 26 ml of milk. Total volume transferred was 70ml; babe content after feeding Babe needed repeated latching throughout the feeding Education provided: Early feeding cues to maximize timing of latching, Asymmetric latch technique for wide/deep latch to increase milk, Transfer for baby and increase comfort for mom (recommend BFing more in the day to assist with strengthening suck coordinatoin and muscle strength needed for nursing), Supply/demand nature of milk supply, Need for frequent stimulation/milk removal, Alternative feeding methods (SNS, cup, finger feeding, bottling), Pumping for milk management (discussed pumping routine and need to shift slowly when she desires decrease due to volumes she's producing) and Milk collection, storage Follow-Up Suggested follow up: Appointment as needed Time Spent Time spent with patient (min): 90 (reviewing EMR and face to face with mom and baby) Meds Home Medications and Allergies Home Medications ?Medication ?Instructions ?Recorded ?Confirmed ?Type vits 75-iron 28 mg-folic pkg PO 07/30/24 12/20/24 History acid 800 mcg-omega-3 oral combo pack (One A Day Women's DHA) valacyclovir 500 mg tablet 500 mg PO BID 11/05/24 12/20/24 History (Valtrex) norethindrone (contraceptive) 0.35 0.35 mg PO QDAY #84 tabs 12/20/24 12/20/24 Rx mg tablet Allergies Allergy/AdvReac Type Severity Reaction Status Date / Time No Known Drug Allergies Allergy Verified 12/20/24 10:36
== END 2024-12-30 09:31 | disposition home or self-care (01) ==
PROVIDERS: PCP Family Medicine; Visit Provider Obstetrics & Gynecology
DX: Z39.1 Encounter for care and examination of lactating mother (principal)
CPT/HCPCS: G0463